=== PATIENT | female | born 1950 | race Caucasian/White ===

== ENCOUNTER 2021-06-20 15:59 | Inpatient (IN) | payer MEDICARE ==
[~2021-06-20] VITALS: Ht 167.6 cm; Wt 88.9 kg
[2021-06-20] MEDS ORDERED: CLON0.5T4 PO ×2 (16:40)
[2021-06-20] MEDS ORDERED: MEMA10TA PO (16:40)
[2021-06-20] MEDS ORDERED: BENZ0.5T43 PO (16:40)
[2021-06-20] MEDS ORDERED: HALO2TAB PO (16:40)
[2021-06-20] MEDS ORDERED: BUSP15TA3 PO (16:40)
[2021-06-20 16:55] LABS: HEMATOCRIT 39.4 % (31.2-41.9); MEAN CORPUSCULAR HEMOGLOBIN 28.7 uug (24.7-32.8); MEAN CORPUSCULAR VOLUME 87.4 fL (75.5-95.3); PLATELET COUNT (AUTO) 325 K/uL (179-408)
[2021-06-20 17:02] LABS: ETHANOL < 3 MG/DL (0-0)
[2021-06-20 17:03] LABS: ALANINE AMINOTRANSFERASE 10 U/L (14-59); ALKALINE PHOSPHATASE 138 U/L (50-136); ASPARTATE AMINOTRANSFERASE 15 U/L (15-37); BILIRUBIN,DIRECT 0.1 mg/dL (0.0-0.2); BILIRUBIN,TOTAL 0.2 mg/dL (0.2-1.0); CARBON DIOXIDE 26 mmol/L (21-32); CHLORIDE 101 mmol/L (98-107); CREATININE 0.8 mg/dL (0.6-1.3); GLUCOSE 115 mg/dL (74-106); POTASSIUM 3.7 mmol/L (3.5-5.1); TOTAL PROTEIN, SERUM 7.3 g/dL (6.4-8.2); UREA NITROGEN, BLOOD 7 mg/dL (7-18)
[2021-06-20 17:07] LABS: ACETAMINOPHEN < 2.0 ug/mL (10-30)
[2021-06-20 17:48] LABS: *BILIRUBIN,URIN NEGATIVE (NEGATIVE); *BLOOD, URINE NEGATIVE (NEGATIVE); *CLARITY,URINE CLEAR (CLEAR); *COLOR,URINE YELLOW (YELLOW); *KETONES,URINE NEGATIVE (NEGATIVE); *UROBILINOGEN,URINE 0.2 E.U./dl (NORMAL); LEUKOCYTE ESTERASE ,URINE TRACE (NEGATIVE); NITRITE, URINE NEGATIVE (NEGATIVE); UGLUCOSE NEGATIVE (NEGATIVE)
[2021-06-20 17:53] LABS: *AMPHETAMINE, URINE NEGATIVE (NEGATIVE); *CANNABINOID, URINE NEGATIVE (NEGATIVE); *COCCAINE, URINE NEGATIVE (NEGATIVE); *OPIATE, URINE NEGATIVE (NEGATIVE); *PHENCYCLIDINE SCREEN,URINE NEGATIVE (NEGATIVE)
--- NOTE | 2021-06-20 18:42 | NUR ---
PINKY BIAG AT BEDSIDE FOR PSYCH EVAL.
[2021-06-20 18:51] LABS: BACTERIA,URINE FEW /HPF (NONE SEEN); RBC,URINE NONE SEEN /HPF (0-3); SQUAMOUS EPITHELIAL CELL,UR MODERATE /HPF (NONE SEEN); WBC,URINE 0-3 /HPF (0-3)
[2021-06-20] MEDS ORDERED: CLONAZEPAM 0.5 MG TABLET PO ONE (19:45)
[2021-06-20] MEDS ORDERED: OLANZAPINE 5 MG TABLET PO ONE (19:45)
[2021-06-20] MEDS ORDERED: CLONAZEPAM 0.5 MG TABLET ONE (20:03)
[2021-06-20] MEDS ORDERED: OLANZAPINE 5 MG TABLET ONE (20:03)
--- NOTE | 2021-06-20 20:15 | NUR ---
MHU CALLED TO F/UP ON BED. PT WILL GO TO 140-A. MHU WILL CALL ER BACK TO GIVE REPORT.
--- NOTE | 2021-06-20 20:35 | NUR ---
REPORT GIVEN TO ROMMEL LUTZ. WAITING FOR ROLLOVER PAPER WORK.
[2021-06-20 21:15] VITALS: BP 154/97
--- NOTE | 2021-06-20 22:00 | NUR ---
Admission note: At approx 2100, admitted 70 years old female to [facility] on a 5150 hold for GD. Hold will on 06/23/21 at 1857. Per hold, patient lives with her in [place]. According to her patient was increasingly confused, forgetful, she was having visual hallucination that she was seen her mother. She was also accusing her of bulling her and screaming at her. She is noted with poor insight. Upon admission. Pt. was noted A/O x 2. she reflects what is written on the hold. She denied SI. she stated that she hears voices but did not want to talk about it. Patient was given her advisement and the booklet for patient's right when in mental health facility. patient was informed of unit rules. She is under the care of dr Hedrick. will continue to monitor.
[2021-06-20] MEDS ORDERED: MAG HYDROX/AL HYDROX/SIMETH 30 ML LIQUID UDC PO PRN (22:15)
[2021-06-20] MEDS ORDERED: MAGNESIUM HYDROXIDE 30 ML LIQUID UDC PO PRN (22:15)
[2021-06-20] MEDS: ACETAMINOPHEN 325 MG TABLET PO PRN (22:51)
[2021-06-20] MEDS: TEMAZEPAM 7.5 MG CAPSULE PO PRN (22:52)
--- NOTE | 2021-06-21 07:00 | NUR ---
patient did not sleep last night. she continue fixed on going home and that she will need transportation and that she will pay for it. Patient requires reality check and multiple redirections. will continue to monitor.
[2021-06-21 07:30] VITALS: BP 177/96
[2021-06-21] MEDS: LORAZEPAM 0.5 MG TABLET PO PRN ×3 (09:55→21:09)
[2021-06-21] MEDS: REMEDY ESSENTIAL ZINC PASTE 113 GM TOP SCH ×2 (09:58→21:10)
--- NOTE | 2021-06-21 11:59 | NUR ---
CHANTE Initial Discharge Note: Pt current residence is [address] [place] [address] [address] [place] [address] ([phone]) with her Rodri Hua ([phone]). CHANTE contacted Rodri and left a voicemail for a call back to discuss pt's discharge plan. CHANTE will continue to work with pt, family and MD to ensure a safe and proper discharge plan.
--- NOTE | 2021-06-21 12:00 | NUR ---
CHANTE Admit Source: Per 5150 hold, pt was brought to [facility] ER from home due to increased confusion and agitation. Pt's current residence is [address] [place] [address] ([phone]) with her Rodri Hua ([phone]). CHANTE contacted Rodri and left a voicemail for a call back to discuss pt's discharge plan. CHANTE will continue to work with pt, family and MD to ensure a safe and proper discharge plan.
--- NOTE | 2021-06-21 12:06 | NUR ---
Firearms Report: Glass Robot Operator completed and submitted a DOJ firearms report for 5150 grave disability certifications. A copy of report has been placed in patient chart.
[2021-06-21] MEDS: risperiDONE 1 MG TABLET PO SCH ×2 (12:22→20:21)
[2021-06-21] MEDS: OXCARBAZEPINE 150 MG TABLET PO SCH ×2 (12:22→17:53)
--- NOTE | 2021-06-21 15:50 | NUR ---
GPS: PT ALERT AN ORIENTED X1-2. PT REFUSED FOOD INTAKE AT BREAKFAST AND LUNCH. PT ONLY DRANK JUICE. PT KIND OF NEEDY AND ATTENTION SEEKER. PT CONFUSED STATING "WHY DID MY AND HIS SIX SIGMA BLACK TRAINER LEFT ME AN HOUR AGO". REDIRECTED PT TO TIME AND PLACE. PT WITH EPISODES OF CRYING. PT SAID "I DON'T LIKE TO BE IN HALFWAY", "I WOULD LIKE TO GO HOME". PT WAS ABLE TO SPOKE WITH GWEN, THE . GIVEN ATIVAN AT 0955 FOR BEING ANXIOUS, DEPRESSED AND NEEDY. PT PACING THE HALLWAY ASKING FOR A LOT OF THINGS AND REQUESTING TO CALL . GWEN, REQUESTED TO LIMIT THE CALL TO HIM FOR ONE TIME A DAY.
[2021-06-21 16:00] VITALS: BP 133/77
--- NOTE | 2021-06-21 18:46 | NUR ---
GPS: PT REFUSED DINNER BUT WAS OFFERED HAM SANDWICH AND PT CONSUMED 100% OF IT. ATIVAN GIVEN AT 1600. PT WITH NOTED CRYING SPELL. PT REDIRECTABLE.
[2021-06-21 20:00] VITALS: BP 182/92
[2021-06-21 21:37] VITALS: BP 109/62
--- NOTE | 2021-06-21 21:45 | NUR ---
received patient in the hallway. She was noted A/O x 2 forgetful and hard to redirect. She was noted restless, flight of ideas, anxious and agitated AEB elevated blood pressure of 182/92mmHg. She stated, "I need to go home, I need transportation to my home. my is waiting for me. I am discharged". she was noted pacing the hallway. Patient required multiple redirection, reality check and reassurance for her safety. QHS medication was given then Ativan 0.5mg PO PRN was also given later on. She currently noted less anxious less agitated. her B/P is 109/68mmHg. patient was also given PO fluids and snacks. Safety and fall precaution in place. will continue to monitor.
[2021-06-21] MEDS: TEMAZEPAM 7.5 MG CAPSULE PO PRN (22:41)
[2021-06-22] MEDS: LORAZEPAM 0.5 MG TABLET PO PRN ×4 (02:07→20:26)
--- NOTE | 2021-06-22 07:26 | NUR ---
patient slept for approx 3.30 hrs through the night. She continue having racing thoughts. "Where are my credit card? Where is Rodri? where are my clothes? I am leaving today, i need transportation". patient required redirections, reality check and reassurance. Patient continue compliant with medication regiment. She denied SI. will continue to monitor/
[2021-06-22 07:30] VITALS: BP 112/68
[2021-06-22] MEDS: OXCARBAZEPINE 150 MG TABLET PO SCH ×3 (08:47→17:27)
[2021-06-22] MEDS: risperiDONE 1 MG TABLET PO SCH ×2 (08:47→20:26)
[2021-06-22] MEDS: REMEDY ESSENTIAL ZINC PASTE 113 GM TOP SCH ×2 (08:50→20:21)
--- NOTE | 2021-06-22 09:35 | NUR ---
GPS: PT ALERT AND VERBALLY RESPONSIVE. PT DEPRESSED, CONFUSED AND DISORIENTED TO TIME AND PLACE. LOOKING FOR HER GWEN ASKING "WHERE IS HE?", "I KNOW HE'S HERE". RE-ORIENTED PT. POOR INSIGHT. NEEDY AND ATTENTION SEEKER. PT COOPERATIVE WITH CARE AND COMPLIANT WITH MEDICATIONS.
[2021-06-22 16:00] VITALS: BP 150/79
[2021-06-22 20:00] VITALS: BP 100/55
[2021-06-22] MEDS: TEMAZEPAM 7.5 MG CAPSULE PO PRN (22:58)
[2021-06-23 07:30] VITALS: BP 161/77
[2021-06-23] MEDS: OXCARBAZEPINE 150 MG TABLET PO SCH ×2 (09:19→16:32)
[2021-06-23] MEDS: risperiDONE 1 MG TABLET PO SCH ×3 (09:19→20:25)
[2021-06-23] MEDS: REMEDY ESSENTIAL ZINC PASTE 113 GM TOP SCH ×2 (09:20→20:26)
--- NOTE | 2021-06-23 13:07 | NUR ---
Gps/Bow Maker Custom- Patient wants to leave, claimed she mahan not belong here, she has travel plans per patient. Instructed the need to talk to her Psychiatrist tomorrow. Patient Went down for Head CT.
[2021-06-23 16:54] VITALS: BP 130/88
[2021-06-23] MEDS: LORAZEPAM 0.5 MG TABLET PO PRN (20:25)
[2021-06-23] MEDS: OXCARBAZEPINE 300 MG TABLET PO SCH (20:25)
[2021-06-23 20:56] VITALS: BP 139/65
[2021-06-23] MEDS: TEMAZEPAM 7.5 MG CAPSULE PO PRN (22:04)
[2021-06-24 07:39] VITALS: BP 117/54
[2021-06-24] MEDS: OXCARBAZEPINE 150 MG TABLET PO SCH ×2 (08:08→16:40)
[2021-06-24] MEDS: AMLODIPINE 5 MG TABLET PO SCH (08:08)
[2021-06-24] MEDS: REMEDY ESSENTIAL ZINC PASTE 113 GM TOP SCH ×2 (08:09→21:21)
[2021-06-24] MEDS: risperiDONE 1 MG TABLET PO SCH ×3 (08:09→22:18)
[2021-06-24] MEDS: LORAZEPAM 0.5 MG TABLET PO PRN ×2 (12:11→21:20)
--- NOTE | 2021-06-24 15:49 | NUR ---
Gps/Fabricating Machine Operator- Anxious, kept coming at the Nurses station, asking when to go from here and when she cant leave. called wants to know her progress. Attended her pm group therapy ,
[2021-06-24 16:49] VITALS: BP 123/99
[2021-06-24 20:00] VITALS: BP 122/64
[2021-06-24] MEDS: OXCARBAZEPINE 300 MG TABLET PO SCH (22:17)
[2021-06-24] MEDS: TEMAZEPAM 7.5 MG CAPSULE PO PRN (22:45)
--- NOTE | 2021-06-25 04:49 | NUR ---
Received to care, lying in bed, pleasant upon approach. Compliant with medications and staff direction. Reported seeing her grandmother at times, but was receptive to reality orientation. Bedtime snacks were given. PRN Ativan and Restoril were both given by 2244. She continued to come to the nurses station frequently, requiring frequent redirection. She finally fell asleep around 0200, and continues to sleep. No distress noted.
[2021-06-25 07:30] VITALS: BP 148/79
[2021-06-25] MEDS: risperiDONE 1 MG TABLET PO SCH ×3 (08:27→20:54)
[2021-06-25] MEDS: OXCARBAZEPINE 150 MG TABLET PO SCH ×2 (08:27→17:12)
[2021-06-25] MEDS: AMLODIPINE 5 MG TABLET PO SCH (08:28)
[2021-06-25] MEDS: REMEDY ESSENTIAL ZINC PASTE 113 GM TOP SCH ×2 (08:29→20:54)
[2021-06-25 16:00] VITALS: BP 110/56
[2021-06-25] MEDS: ACETAMINOPHEN 325 MG TABLET PO PRN (17:12)
[2021-06-25 20:00] VITALS: BP 130/59
[2021-06-25] MEDS: OXCARBAZEPINE 300 MG TABLET PO SCH (20:54)
--- NOTE | 2021-06-25 21:00 | NUR ---
Received patient in bed sleeping but easily awaken. patient noted A/O x 2 caalm and pleasant upon approached. She is able to verbalized feelings. Patient noted forgetful at times with disorganized speech. she requires re-orientation and reality checks. She continue compliant with medication regiment, diet and care. PO fluids and snacks were given. V/S stable. patient is reassured for her safety. safety and fall precaution in place. will continue to monitor.
[2021-06-26] MEDS: TEMAZEPAM 7.5 MG CAPSULE PO PRN ×2 (01:46→23:27)
[2021-06-26 07:44] VITALS: BP 112/66
[2021-06-26] MEDS: risperiDONE 1 MG TABLET PO SCH ×3 (08:56→20:43)
[2021-06-26] MEDS: AMLODIPINE 5 MG TABLET PO SCH (08:57)
[2021-06-26] MEDS: OXCARBAZEPINE 150 MG TABLET PO SCH ×2 (08:57→16:48)
[2021-06-26] MEDS: REMEDY ESSENTIAL ZINC PASTE 113 GM TOP SCH ×2 (08:58→20:31)
[2021-06-26] MEDS: ACETAMINOPHEN 325 MG TABLET PO PRN ×2 (09:22→23:27)
[2021-06-26] MEDS: LORAZEPAM 0.5 MG TABLET PO PRN (10:08)
--- NOTE | 2021-06-26 16:45 | NUR ---
GPS: Nursing Notes: Thought Disorder: Patient is awake and responding to her name, gets easily irritable when redirected, poor insight, forgetful, loud and anxious affect, this am shouting that she is in pain, medication given for pain, but patient believes that she did not get the medication, c/o of right ribs pain, but when Tiffany Dozier, VENETIAN BLIND CLEANER AND REPAIRER came to examine her, she stated that she is not in any pain, "I am fine.. I want to take my shower..", need prompting to participate in therapeutic groups, assisted with ADL's, continue to monitor for safety, continue with treatment plan.
[2021-06-26 16:48] VITALS: BP 112/59
[2021-06-26 20:00] VITALS: BP 125/77
[2021-06-26] MEDS: OXCARBAZEPINE 300 MG TABLET PO SCH (20:43)
--- NOTE | 2021-06-27 03:02 | NUR ---
Pt was received, isolating in room, lying in bed, seeming sad and introspective about past events, but confused and forgetful about recent events, how she got here, and where she lives. Reported visual hallucinations of her mother, confusing her with her father. Reality orientation and emotional support was provided, with some sucess, but memory remains impaired. Compliant with medications. PRN Restoril was given at 2327, and she fell asleep, around an hour later. As of now, she remains asleep. No distress noted.
[2021-06-27] MEDS: LORAZEPAM 0.5 MG TABLET PO PRN (07:29)
[2021-06-27 08:00] VITALS: BP 109/64
[2021-06-27] MEDS: ENSURE ENLIVE (VAN) 240 ML LIQUID PO SCH (08:09)
[2021-06-27] MEDS: OXCARBAZEPINE 150 MG TABLET PO SCH (08:09)
[2021-06-27] MEDS: risperiDONE 1 MG TABLET PO SCH ×3 (08:09→21:20)
[2021-06-27] MEDS: AMLODIPINE 5 MG TABLET PO SCH (08:09)
[2021-06-27] MEDS: REMEDY ESSENTIAL ZINC PASTE 113 GM TOP SCH ×2 (08:10→21:17)
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
--- NOTE | 2021-06-27 13:57 | NUR ---
CHANTE Family Contact: CHANTE contacted pt's , Rodri ([phone]) and discussed updated discharge plan with him. Rodri was agreeable with the discharge plan. Rodri stated he may change his mind and take her home but as for now, he is agreeing with pt's discharge to [facility] ([phone]).
[2021-06-27 16:00] VITALS: BP 149/86
[2021-06-27] MEDS: OXCARBAZEPINE 300 MG TABLET PO SCH ×2 (16:37→21:20)
[2021-06-27] MEDS ORDERED: OXCARBAZEPINE 150 MG TABLET PO SCH (17:00)
[2021-06-27 20:15] VITALS: BP 138/64
[2021-06-27] MEDS: TEMAZEPAM 7.5 MG CAPSULE PO PRN (22:58)
--- NOTE | 2021-06-28 04:16 | NUR ---
Received to care, lying in bed, pleasant and cooperative. Needy and attention seeking, requiring frequent redirection. Denies any psychotic sx, but remains forgetful, and exhibiting poor insight. PRN Restoril was given at 2258, for sleeplessness, and she has slept intermittently, since then, As of now, she is asleep. No distress noted, monitored closely, for safety.
[2021-06-28 07:30] VITALS: BP 145/81
[2021-06-28] MEDS: risperiDONE 1 MG TABLET PO SCH ×3 (09:23→20:21)
[2021-06-28] MEDS: AMLODIPINE 5 MG TABLET PO SCH (09:23)
[2021-06-28] MEDS: OXCARBAZEPINE 300 MG TABLET PO SCH ×3 (09:23→20:21)
[2021-06-28] MEDS: ENSURE ENLIVE (VAN) 240 ML LIQUID PO SCH (09:30)
[2021-06-28] MEDS: REMEDY ESSENTIAL ZINC PASTE 113 GM TOP SCH ×2 (09:30→21:14)
[2021-06-28 16:00] VITALS: BP 142/83
[2021-06-28 20:00] VITALS: BP 112/69
--- NOTE | 2021-06-28 21:30 | NUR ---
Received Patient in her room in bed. She is noted sleeping but easily awaken. She is noted A/O x 1, anxious at times. Disorganized speech, mood is anxious, affect is blunted. She stated that she hears voices. Patient needs constant reassurance and orientation to reality. She is compliant with medication regiment at this time. Patient is reassured for her safety, safety and fall precaution are in place. V/S stable. SHe was provided with snacks and PO fluids. will continue to monitor.
[2021-06-28] MEDS: TEMAZEPAM 7.5 MG CAPSULE PO PRN (23:29)
[2021-06-29 08:10] VITALS: BP 114/67
[2021-06-29] MEDS: OXCARBAZEPINE 300 MG TABLET PO SCH ×3 (08:19→20:22)
[2021-06-29] MEDS: AMLODIPINE 5 MG TABLET PO SCH (08:19)
[2021-06-29] MEDS: ENSURE ENLIVE (VAN) 240 ML LIQUID PO SCH (08:20)
[2021-06-29] MEDS: risperiDONE 1 MG TABLET PO SCH ×3 (08:21→20:22)
[2021-06-29] MEDS: REMEDY ESSENTIAL ZINC PASTE 113 GM TOP SCH ×2 (09:29→20:33)
--- NOTE | 2021-06-29 17:20 | NUR ---
Receive patient awake in the hallway. A/O X 2 to person. Pt. is delusional "Call my sister I need to talk to her". I called her Rodri and he told me her sister 16 years ago. Pt. is demanding, needy, attention seeker. Ambulates in the wheel chair, unsteady gait. Continent of bladder and bowel. Pt. has a rash in her left breast fold, cream barrier applied, and picture was take. compliant with medications. Reality orientation provided. Fall and safety precautions implemented.
[2021-06-29 19:52] VITALS: BP 116/72
[2021-06-29] MEDS: LORAZEPAM 0.5 MG TABLET PO PRN (20:22)
[2021-06-29] MEDS: TEMAZEPAM 7.5 MG CAPSULE PO PRN (21:52)
[2021-06-30 07:30] VITALS: BP 141/78
[2021-06-30] MEDS: OXCARBAZEPINE 300 MG TABLET PO SCH ×3 (09:00→20:10)
[2021-06-30] MEDS: risperiDONE 2 MG TABLET PO SCH ×2 (09:00→16:28)
[2021-06-30] MEDS: ENSURE ENLIVE (VAN) 240 ML LIQUID PO SCH (09:01)
[2021-06-30] MEDS: AMLODIPINE 5 MG TABLET PO SCH (09:01)
[2021-06-30] MEDS: REMEDY ESSENTIAL ZINC PASTE 113 GM TOP SCH ×2 (09:03→20:12)
[2021-06-30] MEDS ORDERED: diphenhydrAMINE 25 MG CAP PO PRN (14:15)
--- NOTE | 2021-06-30 15:50 | NUR ---
Received patient sleeping in her room. A/O X 2 to person, place. Pt affect is sociable, needy, demanding, delusional " I need to talk to my sister, can you please call her?" The sister 16 years ago. Pt. has back rash and left breast fold rash, Lotrisone cream for fungal infection was ordered to apply to left breast fold BID. Benadryl 25 mg PO q.6 hr was also prescribed for back itching. Ambulates with wheel chair. Compliant with medications. Self care. Pt. is encourage to vent feelings and emotions. Fall and safety precautions implemented.
[2021-06-30] MEDS: CLOTRIMAZOLE/BETAMET DIPROP CREAM 15 GM TUBE TOP SCH ×2 (16:00→20:11)
[2021-06-30 17:12] VITALS: BP 133/68
[2021-06-30 20:00] VITALS: BP 120/59
--- NOTE | 2021-07-01 06:21 | NUR ---
GPS: Remain pleasant and cooperative. Denies any psychotic sx, but remains forgetful, and exhibiting poor insight. assisted with adl's. slept 6.45 hrs through the night. No distress noted, monitored closely, for safety. continue plan of care.
[2021-07-01 08:41] VITALS: BP 129/70
[2021-07-01] MEDS: OXCARBAZEPINE 300 MG TABLET PO SCH ×3 (08:57→20:29)
[2021-07-01] MEDS: risperiDONE 2 MG TABLET PO SCH ×2 (08:57→16:22)
[2021-07-01] MEDS: AMLODIPINE 5 MG TABLET PO SCH (08:57)
[2021-07-01] MEDS: ENSURE ENLIVE (VAN) 240 ML LIQUID PO SCH (08:58)
[2021-07-01] MEDS: CLOTRIMAZOLE/BETAMET DIPROP CREAM 15 GM TUBE TOP SCH ×2 (08:59→20:33)
[2021-07-01] MEDS: REMEDY ESSENTIAL ZINC PASTE 113 GM TOP SCH ×2 (09:01→20:40)
--- NOTE | 2021-07-01 15:26 | NUR ---
GPS: Nursing Notes: Thought Disorder: Patient is awake and responding to her name, impaired judgment, resistant with nursing care at times, forgetful, constantly coming to the nursing station and asking the same question, needy at times, A/Ox2, disoriented, disorganized, demanding at times, redirected and reoriented during shift, unable to formulate a viable plan for self care, continue to monitor for safety, continue with treatment plan.
[2021-07-01 16:05] VITALS: BP 128/67
[2021-07-01 20:08] VITALS: BP 115/55
[2021-07-02] MEDS: TEMAZEPAM 7.5 MG CAPSULE PO PRN ×2 (01:39→21:00)
[2021-07-02 07:39] VITALS: BP 138/75
[2021-07-02] MEDS: AMLODIPINE 5 MG TABLET PO SCH (08:58)
[2021-07-02] MEDS: risperiDONE 2 MG TABLET PO SCH ×2 (08:58→16:38)
[2021-07-02] MEDS: OXCARBAZEPINE 300 MG TABLET PO SCH ×3 (08:58→21:00)
[2021-07-02] MEDS: CLOTRIMAZOLE/BETAMET DIPROP CREAM 15 GM TUBE TOP SCH ×2 (08:59→21:00)
[2021-07-02] MEDS: REMEDY ESSENTIAL ZINC PASTE 113 GM TOP SCH ×2 (08:59→21:00)
[2021-07-02] MEDS: ENSURE ENLIVE (VAN) 240 ML LIQUID PO SCH (08:59)
--- NOTE | 2021-07-02 11:52 | NUR ---
GPS: Nursing Notes: Thought Disorder: Patient is awake and responding to his name, impaired judgment, disoriented, forgetful, constantly coming to the nursing station asking the same question, redirected and reoriented during shift, unable to formulate a viable plan for self care, needy at times, believes that she is leaving today, continue to monitor for safety, continue with treatment plan.
[2021-07-02 16:47] VITALS: BP 123/75
[2021-07-02 19:47] VITALS: BP 132/74
[2021-07-03] MEDS: risperiDONE 2 MG TABLET PO SCH ×2 (08:05→16:41)
[2021-07-03] MEDS: OXCARBAZEPINE 300 MG TABLET PO SCH ×4 (08:06→22:01)
[2021-07-03] MEDS: ENSURE ENLIVE (VAN) 240 ML LIQUID PO SCH (08:06)
[2021-07-03] MEDS: AMLODIPINE 5 MG TABLET PO SCH (08:06)
[2021-07-03 08:07] VITALS: BP 127/74
[2021-07-03] MEDS: CLOTRIMAZOLE/BETAMET DIPROP CREAM 15 GM TUBE TOP SCH ×2 (08:07→20:25)
[2021-07-03] MEDS: REMEDY ESSENTIAL ZINC PASTE 113 GM TOP SCH ×2 (08:07→20:25)
--- NOTE | 2021-07-03 13:48 | NUR ---
GPS: Nursing Notes: Thought Disorder: Patient is awake and responding to her name, gets easily anxious when redirected, forgetful, constantly coming to the nursing station and asking the same question, redirected and reoriented during shift, believes that she is leaving today again, unable to formulate a viable plan for self care, continue to monitor for safety, continue with treatment plan.
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
[2021-07-03 16:56] VITALS: BP 91/48
[2021-07-03 20:16] VITALS: BP 104/71
[2021-07-04 08:04] VITALS: BP 126/81
[2021-07-04] MEDS: ENSURE ENLIVE (VAN) 240 ML LIQUID PO SCH (09:00)
[2021-07-04 09:21] VITALS: BP 126/81
[2021-07-04] MEDS: OXCARBAZEPINE 300 MG TABLET PO SCH (09:21)
[2021-07-04] MEDS: AMLODIPINE 5 MG TABLET PO SCH (09:21)
[2021-07-04] MEDS: risperiDONE 2 MG TABLET PO SCH (09:21)
[2021-07-04] MEDS: REMEDY ESSENTIAL ZINC PASTE 113 GM TOP SCH (09:22)
[2021-07-04] MEDS: CLOTRIMAZOLE/BETAMET DIPROP CREAM 15 GM TUBE TOP SCH (09:22)
--- NOTE | 2021-07-04 09:52 | NUR ---
CHANTE Substance Use Intervention: Pt continues to refuse to participate in substance use intervention as pt states, "I don't do it, I never did it." A copy of pt's refusal was placed in pt's chart.
--- NOTE | 2021-07-04 09:55 | NUR ---
CHANTE Discharge Note: Pt will be discharged to [facility] [address] [place] [address] ([phone]) via Ambulance transportation at 11AM. CHANTE spoke with admin coordinator, Concetta ([phone]) at the facility who states they are ready to accept the patient today. Pt is aware and agreeable with discharge plans. Pts , Rodri ([phone]) is aware and agreeable with the discharge plan. Pt is alert and oriented x3 (name, place and situation), is unable to plan for self-care at this time; however, is willing to accept care at SNF. Pt denies any suicidal or homicidal ideation. Pt will follow-up at the facility with Psychiatrist, Dr. Hedrick and Vice President Mission Integration, Dr. Tinoco. Pt presents with calm mood and congruent affect.
--- NOTE | 2021-07-04 10:22 | NUR ---
GPS: Nursing Notes: Refusing For Picture to Taken: patient is refusing for pictures to be taken, stated "Let me alone.. I am leaving today..", continue with discharge planning, continue to monitor for safety, continue with treatment plan.
--- NOTE | 2021-07-04 12:00 | NUR ---
GPS: Nursing Notes: Discharge Notes: Patient is awake and responding to her name, cooperative with nursing care, following staff directions, compliant with her medications, denies SI/HI, denies AH/VH, denies pain or discomfort, denies SOB, discharge to [facility] at [id number] [place] [address] . Report given to Radha, RN mine administrator supervisor, took all he belongings with her, Patient's - Rodri informed of discharge by elementary school social worker, transported to facility via ambulance. Patient will follow up with Dr. Hedrick (psychiatrist) and Dr. Tinoco (manager nursing home) at the facility for aftercare.
== END 2021-07-04 12:00 | DRG 885 ==
LOC: ER 16:03 → GPS 20:47
PROVIDERS: ADMIT Psychiatry & Neurology Psychosomatic Medicine; ATTEND Nurse Practitioner Acute Care
DX: F25.1 Schizoaffective disorder, depressive type (principal); F01.50 Vascular dementia, unspecified severity, without behavioral disturbance, psychotic disturbance, mood disturbance, and anxiety; E78.5 Hyperlipidemia, unspecified; L30.4 Erythema intertrigo; I10 Essential (primary) hypertension; F41.9 Anxiety disorder, unspecified; Z73.6 Limitation of activities due to disability; E66.9 Obesity, unspecified; Z79.899 Other long term (current) drug therapy; Z96.659 Presence of unspecified artificial knee joint; R26.81 Unsteadiness on feet; R21 Rash and other nonspecific skin eruption; V89.2XXS Person injured in unspecified motor-vehicle accident, traffic, sequela; Z20.822 Contact with and (suspected) exposure to COVID-19; Z68.31 Body mass index [BMI] 31.0-31.9, adult
CPT/HCPCS: 36415; 70450; 84443; 85025; 97161; A4663; G0480; Q0163

== ENCOUNTER 2021-09-20 00:17 | Inpatient (IN) | payer MEDICARE ==
[~2021-09-20] VITALS: Ht 165.1 cm; Wt 79.8 kg
--- NOTE | 2021-09-20 00:30 | NUR ---
DR. PORTER AT BEDSIDE, MSE IN PROGRESS.
[2021-09-20 01:52] LABS: *BILIRUBIN,URIN NEGATIVE (NEGATIVE); *BLOOD, URINE NEGATIVE (NEGATIVE); *CLARITY,URINE CLOUDY (CLEAR); *COLOR,URINE YELLOW (YELLOW); *KETONES,URINE 1+ (NEGATIVE); *UROBILINOGEN,URINE 0.2 E.U./dl (NORMAL); LEUKOCYTE ESTERASE ,URINE TRACE (NEGATIVE); NITRITE, URINE NEGATIVE (NEGATIVE); PH,URINE 8.5 (5.0-8.0); UGLUCOSE NEGATIVE (NEGATIVE)
--- NOTE | 2021-09-20 01:55 | NUR ---
LAB AT BEDSIDE.
[2021-09-20 02:02] LABS: BACTERIA,URINE FEW /HPF (NONE SEEN); RBC,URINE 0-3 /HPF (0-3); SQUAMOUS EPITHELIAL CELL,UR FEW /HPF (NONE SEEN); URINE AMORPHOUS PHOSPHATES MANY /HPF
[2021-09-20 02:03] LABS: HEMATOCRIT 35.5 % (31.2-41.9); MEAN CORPUSCULAR HEMOGLOBIN 28.7 uug (24.7-32.8); MEAN CORPUSCULAR VOLUME 86.4 fL (75.5-95.3); PLATELET COUNT (AUTO) 511 K/uL (179-408)
[2021-09-20 02:10] LABS: CARBON DIOXIDE 25 mmol/L (21-32); CHLORIDE 102 mmol/L (98-107); CREATININE 0.8 mg/dL (0.6-1.3); GLUCOSE 103 mg/dL (74-106); POTASSIUM 3.8 mmol/L (3.5-5.1); UREA NITROGEN, BLOOD 13 mg/dL (7-18)
[2021-09-20] MEDS ORDERED: LORAZEPAM 2 MG/1 ML VIAL ONE (02:11)
[2021-09-20] MEDS ORDERED: LORAZEPAM 2 MG/1 ML VIAL IM ONE (02:15)
[2021-09-20 02:16] LABS: ETHANOL < 3 MG/DL (0-0)
[2021-09-20 02:17] LABS: ALANINE AMINOTRANSFERASE 70 U/L (14-59); ALKALINE PHOSPHATASE 138 U/L (50-136); ASPARTATE AMINOTRANSFERASE 40 U/L (15-37); BILIRUBIN,DIRECT 0.1 mg/dL (0.0-0.2); BILIRUBIN,TOTAL 0.4 mg/dL (0.2-1.0); TOTAL PROTEIN, SERUM 6.9 g/dL (6.4-8.2)
[2021-09-20 02:21] LABS: *AMPHETAMINE, URINE NEGATIVE (NEGATIVE); *CANNABINOID, URINE NEGATIVE (NEGATIVE); *COCCAINE, URINE NEGATIVE (NEGATIVE); *OPIATE, URINE NEGATIVE (NEGATIVE); *PHENCYCLIDINE SCREEN,URINE NEGATIVE (NEGATIVE)
[2021-09-20 02:22] LABS: ACETAMINOPHEN < 2.0 ug/mL (10-30)
[2021-09-20] MEDS ORDERED: risperiDONE 0.25 MG TABLET PO ONE (02:45)
--- NOTE | 2021-09-20 02:45 | NUR ---
PT IN BED RESTING, COOPERTIVE WATCHING TV AT THIS TIME.
[2021-09-20] MEDS ORDERED: OFLO5DRO5 RIGHTEYE (03:00)
[2021-09-20] MEDS ORDERED: RISP0.5T65 PO (03:00)
[2021-09-20] MEDS ORDERED: OXCA300T4 PO (03:00)
[2021-09-20] MEDS ORDERED: MELA5TAB PO (03:00)
[2021-09-20] MEDS ORDERED: BUSP30TA2 PO (03:00)
[2021-09-20] MEDS ORDERED: TRAZ-182 PO (03:00)
[2021-09-20] MEDS ORDERED: BUSP15TA3 PO (03:00)
--- NOTE | 2021-09-20 03:52 | NUR ---
GAVER REPORT TO MICHAEL CHRISTIAN.
[2021-09-20] MEDS ORDERED: MAG HYDROX/AL HYDROX/SIMETH 30 ML LIQUID UDC PO PRN (04:15)
[2021-09-20] MEDS ORDERED: MAGNESIUM HYDROXIDE 30 ML LIQUID UDC PO PRN (04:15)
[2021-09-20] MEDS ORDERED: BLOOD SUGAR DIAGNOSTIC 1 EACH STRIP VI ONE (04:15)
[2021-09-20] MEDS ORDERED: ACETAMINOPHEN 325 MG TABLET PO PRN (04:15)
--- NOTE | 2021-09-20 04:37 | NUR ---
Pt. admitted to MHU , under care of Dr. Barron and Sully Dozier Dx: psychosis, 5150 hold DTS, GD Belongs List completed
[2021-09-20 04:54] VITALS: BP 130/75
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
[2021-09-20 07:30] VITALS: BP 133/74
[2021-09-20 08:30] LABS: BILIRUBIN,TOTAL 0.4 mg/dL (0.2-1.0); CREATININE 0.8 mg/dL (0.6-1.3); POTASSIUM 3.8 mmol/L (3.5-5.1); TOTAL PROTEIN, SERUM 6.5 g/dL (6.4-8.2)
[2021-09-20] MEDS ORDERED: OFLOXACIN 0.3% OTIC DROP 5 ML BOTTLE OT SCH (09:00)
[2021-09-20] MEDS: CIPROFLOXACIN 0.3% OPHT DROP 2.5 ML BOTTLE RIGHTEYE SCH ×2 (14:07→22:19)
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
[2021-09-20 16:00] VITALS: BP 107/65
[2021-09-20 20:00] VITALS: BP 125/74
[2021-09-20] MEDS ORDERED: risperiDONE 0.25 MG TABLET PO SCH (21:00)
[2021-09-20] MEDS ORDERED: busPIRone 10 MG TABLET PO SCH (21:00)
[2021-09-21] MEDS: CIPROFLOXACIN 0.3% OPHT DROP 2.5 ML BOTTLE RIGHTEYE SCH (06:55)
[2021-09-21 07:30] VITALS: BP 124/56
[2021-09-21] MEDS ORDERED: busPIRone 5 MG TABLET PO SCH (09:00)
--- NOTE | 2021-09-21 10:39 | NUR ---
CHANTE Initial Discharge Plan: Patient currently resides at [address] [place] [address] ([phone]). Patient reported that she would want to return back home upon discharge. Patient reported her Sales Development Manager is Dr. Puente ([phone]) located at [address] [place] [address]. Patient reported her Psychiatrist is Dr. Chava Rogers. CHANTE contacted pt's Rodri ([phone], ) and left a detailed voicemail of pt's discharge and treatment plan. CHANTE attempted to gather collateral, however, he was unavailable and this production underwriter left a voicemail. CHANTE will work with the MD, treatment team, and family to help coordinate appropriate discharge.
--- NOTE | 2021-09-21 10:39 | NUR ---
CHANTE Family Contact: CHANTE contacted pt's Rodri ([phone], ) and left a detailed voicemail of pt's discharge and treatment plan. CHANTE attempted to gather collateral, however, he was unavailable and this specifications writer left a voicemail.
--- NOTE | 2021-09-21 10:40 | NUR ---
SW Admit Source: Pt placed on a 5150 hold for danger to self and GD. Patient has been feeling anxious and home and is unable to take care of pt at home. Patient currently resides at [address] [place] [address] ([phone]). Patient reported that she would want to return back home upon discharge. SW attempted to contact Rodri ([phone], ) and was unavailable at this time. SW left a detailed voicemail.
[2021-09-21] MEDS: OXCARBAZEPINE 150 MG TABLET PO SCH ×2 (14:00→17:05)
--- NOTE | 2021-09-21 15:59 | NUR ---
Social Work Family Contact Left a message for after unsuccesful attempts to reach him this morning at ([phone]). Will continue to follow up. Patient is lying in her bed and presents as anxious with limited insight. She asked " are you going to arrange for my ride home?" Patient is smiling inappropriately. She is cooperating with care and the milieu.
[2021-09-21 16:56] VITALS: BP 158/77
[2021-09-21] MEDS: risperiDONE 0.5 MG TABLET PO SCH ×2 (17:05→21:29)
[2021-09-21] MEDS: busPIRone 10 MG TABLET PO SCH (17:08)
[2021-09-21 20:10] VITALS: BP 143/75
[2021-09-22 07:30] VITALS: BP 148/72
[2021-09-22] MEDS: risperiDONE 0.5 MG TABLET PO SCH ×3 (08:15→20:31)
[2021-09-22] MEDS: busPIRone 10 MG TABLET PO SCH ×2 (08:16→16:59)
[2021-09-22] MEDS: OXCARBAZEPINE 150 MG TABLET PO SCH ×3 (08:17→17:00)
[2021-09-22 15:56] VITALS: BP 132/72
[2021-09-22 20:44] VITALS: BP 126/78
[2021-09-22] MEDS: NITROFURANTOIN/NITROFURAN MAC 100 MG CAPSULE PO SCH (21:00)
--- NOTE | 2021-09-23 03:51 | NUR ---
GPS/NSG Pharmacy Held 1st dose until UA was obtained.
[2021-09-23 04:01] LABS: *BILIRUBIN,URIN NEGATIVE (NEGATIVE); *BLOOD, URINE NEGATIVE (NEGATIVE); *CLARITY,URINE CLEAR (CLEAR); *COLOR,URINE YELLOW (YELLOW); *KETONES,URINE NEGATIVE (NEGATIVE); *UROBILINOGEN,URINE 0.2 E.U./dl (NORMAL); LEUKOCYTE ESTERASE ,URINE NEGATIVE (NEGATIVE); NITRITE, URINE NEGATIVE (NEGATIVE); PH,URINE 5.5 (5.0-8.0); UGLUCOSE NEGATIVE (NEGATIVE)
[2021-09-23 08:16] VITALS: BP 103/58
[2021-09-23] MEDS: risperiDONE 0.5 MG TABLET PO SCH ×3 (08:37→20:15)
[2021-09-23] MEDS: NITROFURANTOIN/NITROFURAN MAC 100 MG CAPSULE PO SCH ×2 (08:37→21:46)
[2021-09-23] MEDS: OXCARBAZEPINE 150 MG TABLET PO SCH ×3 (08:37→16:34)
[2021-09-23] MEDS: busPIRone 10 MG TABLET PO SCH ×2 (08:37→16:34)
--- NOTE | 2021-09-23 10:32 | NUR ---
Firearms Report: Sap Business Objects Developer completed and submitted a DOJ firearms report for 5150 grave disability and danger to self certifications. A copy of report has been placed in patient chart.
--- NOTE | 2021-09-23 14:42 | NUR ---
GPS: Nursing Notes: Destructive Behavior To Self: Patient is awake and responding to her name, isolative and withdrawn in her room, argumentative at times, resistant with nursing care, gets easily irritable when redirected, believes that she is leaving today, stated "I want to go home.. I don't need to be here..", compliant with her medications, anxious affect, denies SI, unable to formulate a viable plan for self care, continue with treatment plan.
[2021-09-23 16:51] VITALS: BP 116/68
[2021-09-23 20:00] VITALS: BP 107/54
--- NOTE | 2021-09-23 23:30 | NUR ---
NSG/GPS Patient's status changed to 5250, patient served with advisement. patient acknowledged and had to questions, denied suicidal ideation or intent as well as homicidal ideation or intent. Last observed lying in bed. Continue to monitor for safety.
--- NOTE | 2021-09-24 06:28 | NUR ---
GPS/NSG Patient first observed awake in room. Alert, oriented to name, place, however poor insight into current situation. Patient's affect fair, with low mood. Poor appearance, disheveled and unkempt. Patient ambulates with a Front wheel walker, was observed ambulating without it, unsteady, requires X1 assist to ensure safety. Able to make needs known. Patient encouraged by nursing staff to take a shower her response was "No, Im going to e-mail it". Compliant with medication with minimal prompting. Patient is overall cooperative when re-directed, exhibits periods with confusion and disorganized thoughts. Patient's calls daily however, does not speak for fear of causing the patient to become agitated. Continue to follow plan of care as well as provide a safe environment.
--- NOTE | 2021-09-24 06:38 | NUR ---
GPS/NSG Patient slept a total of seven and a half hours, no distress noted. Last observed awake lying in bed. Will continue to monitor Q15 minutes to ensure safety.
[2021-09-24 08:44] VITALS: BP 136/74
[2021-09-24] MEDS: busPIRone 10 MG TABLET PO SCH ×2 (08:54→18:04)
[2021-09-24] MEDS: risperiDONE 0.5 MG TABLET PO SCH ×3 (08:54→20:29)
[2021-09-24] MEDS: NITROFURANTOIN/NITROFURAN MAC 100 MG CAPSULE PO SCH ×2 (08:54→20:29)
[2021-09-24] MEDS: OXCARBAZEPINE 150 MG TABLET PO SCH ×3 (08:54→18:04)
--- NOTE | 2021-09-24 14:03 | NUR ---
GPS: Nursing Notes: Destructive Behavior To Self: Patient is awake and responding to her name, interacting with her roommates, but not coming out of her room this am, needs prompting to participate in therapeutic groups, gets easily irritable when redirected, denies SI/HI, verbally fela for safety, unkempt appearance, unable to formulate a viable plan for self care, argumentative at times, continue to be compliant with her medications, continue to monitor for safety, continue with treatment plan.
[2021-09-24 16:47] VITALS: BP 139/75
[2021-09-24 20:22] VITALS: BP 124/86
--- NOTE | 2021-09-25 04:28 | NUR ---
GPS NURSING NOTES: received patient in her room, A&0x3. Patient is pleasant upon initial interaction, patient appears to be unkempt, encourage to shower but refused. Patient denies hurting self or her . Patient able to make needs known. Remains in her room, withdrawn and isolative. Patient compliant with her medications with understanding of her treatment plans. Patient contract safety with the keno writer / runner. Patient slept soundly during shift. Closely monitoring observed.
[2021-09-25 07:09] LABS: HEMATOCRIT 34.7 % (31.2-41.9); MEAN CORPUSCULAR VOLUME 86.1 fL (75.5-95.3); PLATELET COUNT (AUTO) 453 K/uL (179-408)
[2021-09-25 07:19] LABS: CREATININE 0.7 mg/dL (0.6-1.3); POTASSIUM 4.1 mmol/L (3.5-5.1)
[2021-09-25 07:39] VITALS: BP 127/62
[2021-09-25] MEDS: OXCARBAZEPINE 150 MG TABLET PO SCH ×3 (09:27→17:22)
[2021-09-25] MEDS: risperiDONE 0.5 MG TABLET PO SCH ×3 (09:27→21:29)
[2021-09-25] MEDS: busPIRone 10 MG TABLET PO SCH ×2 (09:28→17:22)
[2021-09-25] MEDS: NITROFURANTOIN/NITROFURAN MAC 100 MG CAPSULE PO SCH ×2 (09:28→21:28)
[2021-09-25] MEDS: METOPROLOL SUCCINATE XL 25 MG TAB.SR.24H PO SCH (12:51)
--- NOTE | 2021-09-25 13:13 | NUR ---
CHANTE Family Contact: CHANTE contacted pt's , Rodri ([phone]) and left a voicemail for a call back regarding pt's current status and discharge plan.
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
--- NOTE | 2021-09-25 16:25 | NUR ---
Discharge Update Note: Patient's , Rodri ([phone]) left a voicemail informing SW and nursing that he will be out of town for the next few days. Rodri stated in the voicemail that he will contact the SW to discuss patient's current status and discharge plan when he returns to town.
[2021-09-25 16:53] VITALS: BP 133/67
--- NOTE | 2021-09-25 18:42 | NUR ---
GPS: Nursing Notes: Thought Disorder: Patient is awake and responding to her name, disoriented, forgetful at times, gets easily anxious when redirected, argumentative at times, poor impulse control at times, episodes of shouting her roommate to "SHOUT UP", compliant with her medications, needs prompting to participate in therapeutic groups, unable to formulate a viable plan for self care, continue with treatment plan.
[2021-09-25 20:08] VITALS: BP 95/56
[2021-09-25] MEDS ORDERED: OXCARBAZEPINE 150 MG TABLET PO SCH (21:00)
[2021-09-26 07:30] VITALS: BP 106/72
[2021-09-26] MEDS: METOPROLOL SUCCINATE XL 25 MG TAB.SR.24H PO SCH (09:00)
[2021-09-26] MEDS: NITROFURANTOIN/NITROFURAN MAC 100 MG CAPSULE PO SCH ×2 (09:11→20:09)
[2021-09-26] MEDS: OXCARBAZEPINE 150 MG TABLET PO SCH ×2 (09:11→17:18)
[2021-09-26] MEDS: busPIRone 10 MG TABLET PO SCH ×2 (09:11→17:18)
[2021-09-26] MEDS: risperiDONE 0.5 MG TABLET PO SCH ×2 (09:11→17:18)
--- NOTE | 2021-09-26 10:34 | NUR ---
Social Work PC Hearing Notification Note Update: SW restated to Patient of their probable cause hearing today on 09/26/21 at 3:30PM. Pt's , Rodri ([phone]) was left a voicemail regarding patient's probable cause hearing today. SW and nursing is aware that Rodri stated he will not be available due to stating he is out of town. SW provided pt with a patient's rights handbook prior to the hearing. Pt is aware and agreeable.
--- NOTE | 2021-09-26 14:59 | NUR ---
GPS: PT [facility] HEARING 14 5249 DONE TODAY AND APPROVED FOR PROBABLE CAUSE OF GRAVE DISABILITY ONLY. PT ATTENDED THE HEARING AND REQUESTED FOR A NEURO CONSULT.
[2021-09-26 16:02] VITALS: BP 136/90
--- NOTE | 2021-09-26 17:57 | NUR ---
GPS: PT SEEN TODAY ALERT AND VERBALLY RESPONSIVE. PT EASILY GETS IRRITABLE AND ANXIOUS WHEN NEEDS ARE NOT MET SOON POSSIBLE. BELIEVED THAT SHE IS TO BE DISCHARGED TODAY. REDIRECTABLE BUT EASILY FORGETS. COMPLIANT WITH MEDS AND CARE. NO VIABLE PLAN FOR SELF CARE AT THIS TIME.
[2021-09-26 20:02] VITALS: BP 116/74
[2021-09-26] MEDS: OXCARBAZEPINE 300 MG TABLET PO SCH (20:10)
[2021-09-26] MEDS: risperiDONE 1 MG TABLET PO SCH (20:11)
[2021-09-27 07:30] VITALS: BP 100/63
[2021-09-27] MEDS: METOPROLOL SUCCINATE XL 25 MG TAB.SR.24H PO SCH (09:00)
[2021-09-27] MEDS: risperiDONE 0.5 MG TABLET PO SCH (09:38)
[2021-09-27] MEDS: OXCARBAZEPINE 150 MG TABLET PO SCH ×2 (09:38→18:51)
[2021-09-27] MEDS: NITROFURANTOIN/NITROFURAN MAC 100 MG CAPSULE PO SCH ×2 (09:38→21:27)
[2021-09-27] MEDS: busPIRone 10 MG TABLET PO SCH ×2 (09:40→18:50)
[2021-09-27 16:00] VITALS: BP 126/76
[2021-09-27] MEDS: risperiDONE 1 MG TABLET PO SCH ×2 (18:51→21:27)
--- NOTE | 2021-09-27 19:44 | NUR ---
GPS: PT COMPLIANT WITH MEDS. PT WITH EPISODE OF TALKING TO SELF. SOMETIMES CONFUSED. DENIES ANY PAIN OR DISCOMFORT. PT LIKES TALKING WITH ROOM MATE. PT EASILY GETS IRRITATED BUT RE-DIRECTABLE MOST OF THE TIME. FEELS ANXIOUS AT TIMES WHEN NEEDS ARE NOT MET ON TIME.
[2021-09-27 20:00] VITALS: BP 116/70
[2021-09-27] MEDS: OXCARBAZEPINE 300 MG TABLET PO SCH (21:27)
[2021-09-28 07:30] VITALS: BP 115/61
[2021-09-28] MEDS: OXCARBAZEPINE 150 MG TABLET PO SCH ×2 (09:00→17:05)
[2021-09-28] MEDS: busPIRone 10 MG TABLET PO SCH ×2 (09:00→17:05)
[2021-09-28] MEDS: risperiDONE 1 MG TABLET PO SCH ×3 (09:00→20:16)
[2021-09-28] MEDS: NITROFURANTOIN/NITROFURAN MAC 100 MG CAPSULE PO SCH ×2 (09:01→20:16)
[2021-09-28] MEDS: METOPROLOL SUCCINATE XL 25 MG TAB.SR.24H PO SCH (09:01)
[2021-09-28 16:00] VITALS: BP 113/60
--- NOTE | 2021-09-28 17:31 | NUR ---
GPS: PT CONFUSED AND DISORIENTED TO TIME. PT ASKING FOR BREAKFAST AFTER SHE HAD ONE. PT RE-ORIENTED TO TIME. DENIES ANY PAIN OR DISCOMFORT. COMPLIANT TO CARE AND MEDS.
[2021-09-28 20:00] VITALS: BP 114/59
[2021-09-28] MEDS: OXCARBAZEPINE 300 MG TABLET PO SCH (20:16)
[2021-09-28] MEDS: TEMAZEPAM 7.5 MG CAPSULE PO PRN (22:57)
--- NOTE | 2021-09-29 06:10 | NUR ---
GPS: Pt.slept for 7.45 last night. Remains paranoid at times. Re-directed and re-assured prn. No increased agitation noted. Safety emphasized.
[2021-09-29 07:30] VITALS: BP 101/66
[2021-09-29] MEDS: NITROFURANTOIN/NITROFURAN MAC 100 MG CAPSULE PO SCH (08:57)
[2021-09-29] MEDS: risperiDONE 1 MG TABLET PO SCH ×3 (08:57→20:20)
[2021-09-29] MEDS: busPIRone 10 MG TABLET PO SCH ×2 (08:58→17:35)
[2021-09-29] MEDS: METOPROLOL SUCCINATE XL 25 MG TAB.SR.24H PO SCH (08:58)
[2021-09-29] MEDS: OXCARBAZEPINE 150 MG TABLET PO SCH ×2 (08:58→17:35)
[2021-09-29 17:07] VITALS: BP 100/52
[2021-09-29] MEDS: OXCARBAZEPINE 300 MG TABLET PO SCH (20:20)
[2021-09-29 20:33] VITALS: BP 91/60
--- NOTE | 2021-09-29 21:12 | NUR ---
GPS: RECEIVED PT ON BED. COMPLIANT WITH MEDICATIONS. NO ANXIETY NOTED AT THIS TIME.
[2021-09-29] MEDS: TEMAZEPAM 7.5 MG CAPSULE PO PRN (21:35)
[2021-09-29] MEDS: CLONAZEPAM 0.5 MG TABLET PO PRN (23:00)
--- NOTE | 2021-09-30 06:26 | NUR ---
GPS: PT ASLEEP FOR 6 HOURS. NO AGITATION NOTED. COMPLIANT WITH MEDS AND CARE.
[2021-09-30] MEDS: risperiDONE 1 MG TABLET PO SCH ×3 (08:12→20:51)
[2021-09-30] MEDS: OXCARBAZEPINE 150 MG TABLET PO SCH ×2 (08:15→17:04)
[2021-09-30] MEDS: busPIRone 10 MG TABLET PO SCH ×2 (08:15→17:04)
[2021-09-30] MEDS: METOPROLOL SUCCINATE XL 25 MG TAB.SR.24H PO SCH (08:58)
[2021-09-30 10:06] VITALS: BP 114/73
[2021-09-30] MEDS: ENSURE WITH FIBER 237 ML LIQUID (CHOCOLATE) PO SCH ×3 (10:27→17:04)
[2021-09-30 16:49] VITALS: BP 129/85
[2021-09-30 20:00] VITALS: BP 124/55
[2021-09-30] MEDS: OXCARBAZEPINE 300 MG TABLET PO SCH (20:51)
[2021-10-01 09:17] VITALS: BP 122/71
[2021-10-01] MEDS: busPIRone 10 MG TABLET PO SCH ×2 (09:28→17:28)
[2021-10-01] MEDS: risperiDONE 1 MG TABLET PO SCH ×3 (09:28→20:37)
[2021-10-01] MEDS: ENSURE WITH FIBER 237 ML LIQUID (CHOCOLATE) PO SCH ×3 (09:28→17:28)
[2021-10-01] MEDS: METOPROLOL SUCCINATE XL 25 MG TAB.SR.24H PO SCH (09:33)
--- NOTE | 2021-10-01 13:40 | NUR ---
GPS: PT RECEIVED ON BED, ALERT AND VERBALLY RESPONSIVE. DENIES PAIN OR DISCOMFORT. COMPLIANT WITH CARE AND MEDS. NO AGITATION AT THIS TIME.
[2021-10-01 16:28] VITALS: BP 126/73
[2021-10-01 20:45] VITALS: BP 110/56
[2021-10-01] MEDS: CLONAZEPAM 0.5 MG TABLET PO PRN (23:00)
[2021-10-02 07:46] VITALS: BP 103/51
[2021-10-02] MEDS: risperiDONE 1 MG TABLET PO SCH ×3 (08:47→21:34)
[2021-10-02] MEDS: busPIRone 10 MG TABLET PO SCH ×2 (08:47→17:38)
[2021-10-02] MEDS: ENSURE WITH FIBER 237 ML LIQUID (CHOCOLATE) PO SCH ×3 (08:48→17:40)
[2021-10-02] MEDS: METOPROLOL SUCCINATE XL 25 MG TAB.SR.24H PO SCH (08:48)
[2021-10-02 16:08] VITALS: BP 105/67
--- NOTE | 2021-10-02 18:55 | NUR ---
patient received Anxious at times. compliant with all medication . Re-assured and re-directed prn.Safety emphasized. Insight and judgement remans impaired.
[2021-10-02 20:31] VITALS: BP 113/68
[2021-10-03 08:05] VITALS: BP 102/52
[2021-10-03] MEDS: busPIRone 10 MG TABLET PO SCH ×2 (08:35→17:42)
[2021-10-03] MEDS: risperiDONE 1 MG TABLET PO SCH ×2 (08:35→17:42)
[2021-10-03] MEDS: METOPROLOL SUCCINATE XL 25 MG TAB.SR.24H PO SCH (08:35)
[2021-10-03] MEDS: ENSURE WITH FIBER 237 ML LIQUID (CHOCOLATE) PO SCH ×3 (08:36→17:42)
--- NOTE | 2021-10-03 18:02 | NUR ---
received patient Anxious at times. compliant with all medication . Re-assured and re-directed prn.Safety emphasized. Insight and judgement remans impaired.will plan to discharge pt to SNF in AM.
[2021-10-03 19:45] VITALS: BP 120/57
[2021-10-03] MEDS ORDERED: risperiDONE 1 MG TABLET PO SCH (21:00)
--- NOTE | 2021-10-04 06:11 | NUR ---
GPS: Pt.slept 6 1/2 hrs.last night. Remains anxious,paranoid and disorganized at times. Re-assured and re-directed prn. Med.compliant. No aggressive behavior noted. Safety emphasized. Will continue to monitor.
[2021-10-04] MEDS: busPIRone 10 MG TABLET PO SCH (08:41)
[2021-10-04] MEDS: risperiDONE 1 MG TABLET PO SCH (08:42)
[2021-10-04] MEDS: ENSURE WITH FIBER 237 ML LIQUID (CHOCOLATE) PO SCH (08:42)
[2021-10-04 08:43] VITALS: BP 106/61
[2021-10-04] MEDS: METOPROLOL SUCCINATE XL 25 MG TAB.SR.24H PO SCH (08:43)
--- NOTE | 2021-10-04 09:00 | NUR ---
Received patient sleeping in her r5oom. A/O X 2 to person, place. Pt. is cooperative with care and compliant with medications, needy, demanding, forget and confused at times. Ambulates with walker. Continent of bladder and bowel. Emotional support provided. Fall and safety precautions implemented.
--- NOTE | 2021-10-04 09:12 | NUR ---
CHANTE Discharge Note: Pt will be discharged to [facility] [address] [place] [address] ([phone]) via Ambulance transportation at 11AM. CHANTE spoke with admin coordinator, Antoine at the facility who states they are ready to accept the patient today. Pt is aware and agreeable with discharge plans. Pts , Rodri ([phone]) is aware and agreeable with the discharge plan. Pt is alert and oriented x3, is unable to plan for self-care at this time; however, is willing to accept care at SNF. Pt denies any suicidal or homicidal ideation. Pt will follow-up at the facility with Psychiatrist, Dr. Hedrick and Petroleum Production Engineer, Dr. Theodore. Pt presents with calm mood and congruent affect. PHARMACY: [facility] ([phone]) [address] [place] [address].
--- NOTE | 2021-10-04 11:25 | NUR ---
Received orders to discharge this patient to [address] [address] ([phone]) via [facility] transportation at 11 am. Patient was given all belongings and signed all discharge documents. Denies SI/HI AH/VH, pain, or SOB. Patient left the unit at 11:25. Fall and safety precautions implemented.
== END 2021-10-04 11:25 | DRG 885 ==
LOC: ER 00:19 → GPS 04:10
PROVIDERS: ADMIT Nurse Practitioner Psychiatric/Mental Health; ATTEND Nurse Practitioner Family
DX: F25.9 Schizoaffective disorder, unspecified (principal); F01.50 Vascular dementia, unspecified severity, without behavioral disturbance, psychotic disturbance, mood disturbance, and anxiety; D68.0 Von Willebrand disease; G30.9 Alzheimer's disease, unspecified; F02.80 Dementia in other diseases classified elsewhere, unspecified severity, without behavioral disturbance, psychotic disturbance, mood disturbance, and anxiety; K58.9 Irritable bowel syndrome, unspecified; E03.9 Hypothyroidism, unspecified; E78.5 Hyperlipidemia, unspecified; E88.09 Other disorders of plasma-protein metabolism, not elsewhere classified; F31.9 Bipolar disorder, unspecified; F41.0 Panic disorder [episodic paroxysmal anxiety]; K21.9 Gastro-esophageal reflux disease without esophagitis; Z20.822 Contact with and (suspected) exposure to COVID-19; Z91.81 History of falling; M19.90 Unspecified osteoarthritis, unspecified site; G43.809 Other migraine, not intractable, without status migrainosus; M79.7 Fibromyalgia; F41.9 Anxiety disorder, unspecified; S00.83XA Contusion of other part of head, initial encounter; X58.XXXA Exposure to other specified factors, initial encounter; Y93.9 Activity, unspecified; Y92.89 Other specified places as the place of occurrence of the external cause
CPT/HCPCS: 36415; 71045; 84443; 85025; 87086; 93005; 97161; A4663; G0480; J2060